=== PATIENT | male | born 1975 ===

== ENCOUNTER 2017-10-15 01:30 | Outpatient (CLI) | payer OTHER | END 2017-10-15 23:59 | disposition home or self-care (01) | LOC: DIABETIC 01:30 | PROVIDERS: ATTEND General Practice | DX: E11.9 Type 2 diabetes mellitus without complications (principal) | CPT/HCPCS: G0108 ==

== ENCOUNTER 2018-01-20 02:35 | Outpatient (CLI) | payer OTHER | END 2018-01-20 23:59 | disposition home or self-care (01) | LOC: DIABETIC 02:35 | PROVIDERS: ATTEND General Practice | DX: E11.9 Type 2 diabetes mellitus without complications (principal) | CPT/HCPCS: G0108 ==

== ENCOUNTER 2018-04-29 04:24 | Outpatient (CLI) | payer OTHER | END 2018-04-29 23:59 | disposition home or self-care (01) | LOC: DIABETIC 04:24 | PROVIDERS: ATTEND General Practice | DX: E11.9 Type 2 diabetes mellitus without complications (principal); Z79.84 Long term (current) use of oral hypoglycemic drugs; Z91.018 Allergy to other foods | CPT/HCPCS: G0108 ==

== ENCOUNTER 2018-08-05 04:21 | Outpatient (CLI) | payer OTHER | END 2018-08-05 23:59 | disposition home or self-care (01) | LOC: DIABETIC 04:21 | PROVIDERS: ATTEND General Practice | DX: E11.9 Type 2 diabetes mellitus without complications (principal); Z79.84 Long term (current) use of oral hypoglycemic drugs; Z91.018 Allergy to other foods | CPT/HCPCS: G0108 ==

== ENCOUNTER 2018-11-04 08:34 | Outpatient (CLI) | payer OTHER | END 2018-11-04 23:59 | disposition home or self-care (01) | LOC: DIABETIC 08:34 | PROVIDERS: ATTEND General Practice | DX: E11.9 Type 2 diabetes mellitus without complications (principal); Z79.84 Long term (current) use of oral hypoglycemic drugs | CPT/HCPCS: G0108 ==

== ENCOUNTER 2019-02-02 04:48 | Outpatient (CLI) | payer OTHER | END 2019-02-02 23:59 | disposition home or self-care (01) | LOC: DIABETIC 04:48 | PROVIDERS: ATTEND General Practice | DX: E11.9 Type 2 diabetes mellitus without complications (principal); Z79.84 Long term (current) use of oral hypoglycemic drugs; Z79.899 Other long term (current) drug therapy; Z91.018 Allergy to other foods | CPT/HCPCS: G0108 ==

== ENCOUNTER 2019-05-05 00:04 | Outpatient (CLI) | payer OTHER | END 2019-05-05 23:59 | disposition home or self-care (01) | LOC: DIABETIC 00:04 | PROVIDERS: ATTEND General Practice | DX: E11.9 Type 2 diabetes mellitus without complications (principal); Z79.84 Long term (current) use of oral hypoglycemic drugs; Z79.899 Other long term (current) drug therapy; Z91.018 Allergy to other foods | CPT/HCPCS: G0108 ==

== ENCOUNTER 2019-08-04 04:06 | Outpatient (CLI) | payer OTHER | END 2019-08-04 23:59 | disposition home or self-care (01) | LOC: DIABETIC 04:06 | PROVIDERS: ATTEND General Practice | DX: E11.9 Type 2 diabetes mellitus without complications (principal); Z79.84 Long term (current) use of oral hypoglycemic drugs | CPT/HCPCS: G0108 ==